=== PATIENT | female | born 1970 | race Caucasian/White ===

== ENCOUNTER 2022-06-14 14:30 | Emergency (ER) | payer OTHER, SELFPAY ==
[2022-06-14 15:03] VITALS: BP 116/77; PULSE 82; RESP 16; TEMP 36.7; O2SAT 100
--- NOTE | 2022-06-14 15:18 | ED.GENADULT ---
HPI - General Adult General Chief complaint: Extremity Injury, Upper Stated complaint: laceration rt hand Time Seen by Provider: 06/14/22 15:18 Source: patient Mode of arrival: ambulatory Limitations: no limitations History of Present Illness HPI narrative: 52-year-old female patient presents to the [facility] with complaints of a laceration to the right hand. Patient states that happened approximately 11:00 a.m. this morning she was washing dishes and sharp knife was in the sink and she was unaware and cut herself on the knife. Patient unaware for when her last tetanus shot was. Related Data Allergies Allergy/AdvReac Type Severity Reaction Status Date / Time No Known Allergies Allergy Verified 06/14/22 15:21 Review of Systems Review of Systems: CONSTITUTIONAL: Denies fever, chills, or sweats. EYES: Denies visual changes, redness, or discharge. ENT: Denies rhinorrhea, congestion, sore throat, or otalgia. CARDIOVASCULAR: Denies chest pain, palpitations, or edema. RESPIRATORY: Denies cough or dyspnea. GASTROINTESTINAL: Denies abdominal pain, nausea, vomiting, or diarrhea. GENITOURINARY: Denies dysuria or hematuria. SKIN: Denies rash or itching. Positive laceration right hand MUSCULOSKELETAL: Denies back pain, joint pain, or myalgia. NEUROLOGIC: Denies headache, numbness, or weakness. PSYCHIATRIC: Denies anxiety or depression. [facility] Past Medical History Medical History Labral tear of hip joint Left hip pain Trochanteric bursitis Trochanteric bursitis, left hip Surgical History Surgical History History of adjustable gastric banding History of laparoscopic cholecystectomy Family History Family History Father Hypertension Other Arthritis Pancreatic cancer Social History Social History Smoking status: Never smoker Alcohol intake: current Drinks per week: 3 Substance use: never Substance use type: does not use Gender identity (if verbalized by the patient): Female Comments At the time of my signature I agree with nursing past medical history, surgical, social, and family history. There is no relevant family history pertinent to the presenting complaint. Exam Narrative: GENERAL: Well-appearing, well-nourished, and in no acute distress. HEAD: Normocephalic, atraumatic. EYES: PERRLA and EOMI. ENT: Nares clear, no rhinorrhea or epistaxis. Mucous membranes moist. NECK: Supple. No lymphadenopathy CHEST: Clear to auscultation. No respiratory distress. HEART: Regular rate and rhythm. No murmur heard. Normal peripheral pulses. ABDOMEN: Soft, nontender, nondistended, normal active bowel sounds. EXTREMITIES: Normal range of motion. No edema. SKIN: Warm, dry, no rash. patient has approximately 2 cm laceration to the palm of the right hand under the pinky. There is some fat exposed and does appear to be gaping. No active bleeding at this time. NEURO: No focal deficits. Alert and oriented x3. Course Course Level of Care: Express Care Visit Vital Signs Vital signs: Vital Signs Temperature 36.7 C 06/14/22 15:03 Pulse Rate 82 06/14/22 15:03 Respiratory Rate 16 06/14/22 15:03 Blood Pressure 116/77 06/14/22 15:03 Pulse Oximetry 100 06/14/22 15:03 Oxygen Delivery Room Air 06/14/22 15:03 Temperature 36.7 C 06/14/22 15:03 Pulse Rate 82 06/14/22 15:03 Respiratory Rate 16 06/14/22 15:03 Blood Pressure 116/77 06/14/22 15:03 Pulse Oximetry 100 06/14/22 15:03 Oxygen Delivery Room Air 06/14/22 15:03 Vital signs reviewed. Procedures Laceration Laceration 1: Date: 06/14/22 Time: 16:10 Side (If applicable): right Size (cm): 2 Description: linear Depth: simple, single layer Local Anesthetic: lidoca
[2022-06-14] MEDS: TETANUS,DIPHTHERIA,AC PERTUSSIS ADULT (0.5 ML) BOOSTRIX IM (15:41)
== END 2022-06-14 16:27 | disposition home or self-care (01) ==
PROVIDERS: Emergency Provider Nurse Practitioner Family; PCP Nurse Practitioner Family
DX: S61.411A Laceration without foreign body of right hand, initial encounter (principal); W26.0XXA Contact with knife, initial encounter; Y93.G1 Activity, food preparation and clean up; Z23 Encounter for immunization
CPT/HCPCS: 12001; 90471; 90715; 99212; G0463